=== PATIENT | male | born 1960 | race Caucasian/White ===

== ENCOUNTER 2017-12-03 08:00 | Outpatient (CLI) | payer OTHER ==
[2017-12-03 17:22] LABS: BASOPHILS % (AUTO) 0.6 %; EOSINOPHILS # (AUTO) 0.1 10^3/uL (0.0-0.7); EOSINOPHILS % (AUTO) 1.7 %; HGB - HEMOGLOBIN 17.3 g/dL (14.0-18.0); LYMPHOCYTES # (AUTO) 2.6 10^3/uL (1.5-3.5); LYMPHOCYTES % (AUTO) 36.7 %; MEAN CORPUSCULAR HEMOGLOBIN 33.5 pg (27.0-31.0); MEAN CORPUSCULAR HGB CONC 33.6 g/dL (32.0-36.0); MEAN CORPUSCULAR VOLUME 99.9 fL (80.0-94.0); MEAN PLATELET VOLUME 10.4 fL (7.4-11.4); MONOCYTES # (AUTO) 0.6 10^3/uL (0.0-1.0); MONOCYTES % (AUTO) 8.7 %; NEUTROPHILS # (AUTO) 3.7 10^3/uL (1.5-6.6); NEUTROPHILS % (AUTO) 52.3 %; PLT - PLATELET COUNT 134 10^3/uL (130-450); RED BLOOD COUNT 5.16 10^6/uL (4.70-6.10); RED CELL DISTRIBUTION WIDTH 13.5 % (12.0-15.0); WHITE BLOOD COUNT 7.1 x10^3/uL (4.8-10.8)
[2017-12-03 17:33] LABS: ALBUMIN 4.2 g/dL (3.2-5.5); ALBUMIN/GLOBULIN RATIO 1.1 (1.0-2.2); ALKALINE PHOSPHATASE 92 IU/L (42-121); ALT ALANINE AMINOTRANSFERASE 187 IU/L (10-60); AMYLASE 44 U/L (28-100); AST ASPARTATE AMINOTRANSFERASE 165 IU/L (10-42); BILIRUBIN,TOTAL 1.4 mg/dL (0.2-1.0); BUN - BLOOD UREA NITROGEN 13 mg/dL (6-20); CALCIUM 9.2 mg/dL (8.5-10.3); CARBON DIOXIDE - CO2 27 mmol/L (21-32); CHLORIDE 102 mmol/L (101-111); CHOL/HDL RATIO 4.9 (<5.0); CHOLESTEROL 162 mg/dL; CREATININE 0.7 mg/dL (0.6-1.2); GFR - MDRD 115 (>89); GLUCOSE 95 mg/dL (70-100); HDL CHOLESTEROL 33 mg/dL; LDL CHOLESTEROL,CALCULATED 104 mg/dL; LDL/HDL RATIO 3.2 (<3.6); SODIUM 138 mmol/L (135-145); TOTAL PROTEIN 8.1 g/dL (6.7-8.2); VLDL CHOLESTEROL 25 mg/dL
== END 2017-12-03 08:01 ==
LOC: LAB.F 08:00
PROVIDERS: ATTEND Physician Assistant Medical
DX: Z00.00 Encounter for general adult medical examination without abnormal findings (principal); R10.9 Unspecified abdominal pain
CPT/HCPCS: 36415; 80053; 80061; 82150; 83721; 84443; 85025

== ENCOUNTER 2017-12-12 11:31 | Outpatient (CLI) | payer OTHER ==
[2017-12-13 14:09] LABS: HEPATITIS B SURFACE ANTIGEN NON-REACTIVE (NON-REACTIVE); HEPATITIS C ANTIBODY REACTIVE (NON-REACTIVE)
[2017-12-16 13:41] LABS: HCV RNA QNT 6.24 Log IU/mL (NOT DETECTED); HCV RNA QUANT RT PCR 1750000 IU/mL (NOT DETECTED)
== END 2017-12-12 11:32 | disposition home or self-care (01) ==
LOC: LAB.F 11:31
PROVIDERS: ATTEND Physician Assistant Medical
DX: R74.0 Nonspecific elevation of levels of transaminase and lactic acid dehydrogenase [LDH] (principal)
CPT/HCPCS: 36415; 81599; 86317; 86704; 86803; 87340

== ENCOUNTER 2019-01-14 07:29 | Outpatient (CLI) | payer OTHER ==
[2019-01-14 12:33] LABS: CALCIUM 9.3 mg/dL (8.5-10.3); CREATININE 0.8 mg/dL (0.6-1.2)
[2019-01-18 14:46] LABS: DHEA SULFATE 100 mcg/dL (38-313)
== END 2019-01-14 07:30 | disposition home or self-care (01) ==
LOC: LAB.F 07:29
PROVIDERS: ATTEND Internal Medicine Endocrinology, Diabetes & Metabolism
DX: D35.02 Benign neoplasm of left adrenal gland (principal)
CPT/HCPCS: 36415; 80048; 81599; 82088; 82533; 82627

== ENCOUNTER 2020-06-24 09:11 | Outpatient (CLI) | payer OTHER ==
[2020-06-24 13:29] LABS: BASOPHILS # (AUTO) 0.1 10^3/uL (0.0-0.1); BASOPHILS % (AUTO) 0.5 %; EOSINOPHILS # (AUTO) 0.3 10^3/uL (0.0-0.7); EOSINOPHILS % (AUTO) 2.7 %; HGB - HEMOGLOBIN 16.9 g/dL (14.0-18.0); LYMPHOCYTES # (AUTO) 2.9 10^3/uL (1.5-3.5); LYMPHOCYTES % (AUTO) 30.5 %; MEAN CORPUSCULAR HEMOGLOBIN 33.5 pg (27.0-31.0); MEAN CORPUSCULAR HGB CONC 34.8 g/dL (32.0-36.0); MEAN CORPUSCULAR VOLUME 96.4 fL (80.0-94.0); MONOCYTES # (AUTO) 0.6 10^3/uL (0.0-1.0); MONOCYTES % (AUTO) 6.6 %; NEUTROPHILS # (AUTO) 5.7 10^3/uL (1.5-6.6); NEUTROPHILS % (AUTO) 59.3 %; PLT - PLATELET COUNT 206 10^3/uL (130-450); RED BLOOD COUNT 5.04 10^6/uL (4.70-6.10); RED CELL DISTRIBUTION WIDTH 12.7 % (12.0-15.0); WHITE BLOOD COUNT 9.6 x10^3/uL (4.8-10.8)
[2020-06-24 13:52] LABS: ALBUMIN 4.4 g/dL (3.2-5.5); ALBUMIN/GLOBULIN RATIO 1.2 (1.0-2.2); ALKALINE PHOSPHATASE 44 IU/L (42-121); ALT ALANINE AMINOTRANSFERASE 37 IU/L (10-60); AMYLASE 36 U/L (28-100); AST ASPARTATE AMINOTRANSFERASE 26 IU/L (10-42); BILIRUBIN,TOTAL 0.9 mg/dL (0.2-1.0); BUN - BLOOD UREA NITROGEN 16 mg/dL (6-20); CALCIUM 9.4 mg/dL (8.5-10.3); CARBON DIOXIDE - CO2 26 mmol/L (21-32); CHLORIDE 103 mmol/L (101-111); CHOL/HDL RATIO 5.1 (<5.0); CHOLESTEROL 169 mg/dL; CREATININE 0.8 mg/dL (0.6-1.2); GLUCOSE 115 mg/dL (70-100); HDL CHOLESTEROL 33 mg/dL; LDL CHOLESTEROL,CALCULATED 109 mg/dL; LDL/HDL RATIO 3.3 (<3.6); LIPASE 34 U/L (22-51); SODIUM 138 mmol/L (135-145); VLDL CHOLESTEROL 27 mg/dL
== END 2020-06-24 09:12 | disposition home or self-care (01) ==
LOC: LAB.S 09:11
PROVIDERS: ATTEND Family Medicine
DX: Z00.00 Encounter for general adult medical examination without abnormal findings (principal); I10 Essential (primary) hypertension; D35.00 Benign neoplasm of unspecified adrenal gland
CPT/HCPCS: 36415; 80053; 80061; 82150; 83690; 83721; 84153; 84443; 85025

== ENCOUNTER 2021-03-07 06:37 | Outpatient (CLI) | payer OTHER ==
--- NOTE | 2021-03-07 08:59 | CT Report ---
PROCEDURE: Low Dose Lung Cancer Screen INDICATIONS: CURRENT SMOKER TECHNIQUE: Noncontrast low-dose 5 mm thick sections acquired from the pulmonary apices to the posterior costophr enic angles. 7 mm thick coronal and sagittal MIP reformats were then acquired. For radiation dose r eduction, the following was used: automated exposure control, adjustment of mA and/or kV according t o patient size. COMPARISON: None. FINDINGS: Lungs and pleura: High density 1 mm calcified granuloma seen on image 173/4. Diffuse peribronchial c uffing suggestive of nonspecific bronchitis and/or reactive airways disease. Upper lobe predominant c entrilobular emphysema noted. No acute consolidation. No suspicious pulmonary nodule. Pleura: No pleural effusion or pneumothorax. Heart: Normal. Lymph nodes: Normal. Thyroid: Normal. Aorta: Normal Pulmonary arteries: Normal. Esophagus: Bones: Diffuse spondolytic changes and facet arthropathy. No compression fracture. Upper abdomen: Normal. IMPRESSION: No suspicious pulmonary nodule. Lung-RADS 1. Recommend annual lung screening CT. Upper lobe predominant emphysema. Diffuse peribronchial cuffing suggestive of nonspecific bronchitis and/or reactive airways disease. Lung-RADS 0: Prior chest CT needed for comparison. Part of all of lungs cannot be evaluated. Lung-RADS 1: No nodules or definitely benign nodules, continue annual screening in 12 months. ? Nodules with specific calcifications: complete, central, popcorn, concentric rigns and fat contain ing nodules. Lung-RADS 2: Very low likelihood of becoming clinically active CA due to size or lack of growth, con tinue annual screening in 12 months. ? Solid nodules: < 6 mm or new < 4 mm. ? Part solid nodules: < 6 mm total diameter on baseline. ? Non-solid or ground-glass nodules: < 20 mm OR 20 mm or more (unchanged or slowly growing). ? Category 3 and 4 nodules unchanged for 3 months or more. Lung-RADS 3: Probably benign; recommend [address] ? Solid nodules: 6 to <8 mm at baseline OR new 4 to <6 mm nodule. ? Part solid nodules: 6 mm or more with solid component of < 6 mm OR new < 6 mm lesion. ? Non-solid or ground-glass nodules: 20 mm or more on baseline, or new. Lung-RADS 4A: Suspicious; recommend 3-month followup CT, or PET-CT when there is a solid component o f 8 mm or more. ? Solid nodules: 8 to <15 mm at baseline, OR growing < 8 mm, OR new 6 to <8 mm. ? Part-solid nodules: 6 mm ore more with solid component 6 to < 8 mm, OR with new/growing < 4 mm so lid component. ? Endobronchial nodule. Lung-RADS 4B: Suspicious; recommend chest CT with or without contrast, PET-CT and/or biopsy. PET-CT may be used if there is a solid component of 8 mm or more. ? Solid nodules: 15 mm or more, OR new/growing 8 mm or more. ? Part-solid nodules: solid component of 8 mm or more, OR new/growing solid component of 4 mm or mor e. Lung-RADS 4X: Category 3-4 nodules with additional features or findings that increase the suspicion for malignancy. Treat the same as 4B. ? Examples: spiculated margins, ground-glass nodule doubling in size in 1 year, enlarged lymph nodes . S modifier: Clinically significant or potentially clinically significant findings (not lung CA). C modifier: Patients with prior dx of lung CA who return to screening. Growth: defined as size increase of > 1.5 mm. Reviewed by: John Baker MD on 03/07/2021 8:58 AM PDT Approved by: John Baker MD on 03/07/2021 8:58 AM PDT Station ID: [id number]
== END 2021-03-07 06:38 | disposition home or self-care (01) ==
LOC: DI 06:37
PROVIDERS: ATTEND Internal Medicine
DX: Z12.2 Encounter for screening for malignant neoplasm of respiratory organs (principal); J43.9 Emphysema, unspecified; J98.09 Other diseases of bronchus, not elsewhere classified; F17.210 Nicotine dependence, cigarettes, uncomplicated

== ENCOUNTER 2021-03-28 13:49 | Outpatient (CLI) | payer OTHER ==
--- NOTE | 2021-03-28 18:08 | CT Report ---
PROCEDURE: ABDOMEN WO INDICATIONS: HYPERTENSION TECHNIQUE: Noncontrast axial images were acquired from the diaphragms to the symphysis. 5 mm coronal and sagitt al reformats were then performed. For radiation dose reduction, the following was used: automated e xposure control, adjustment of mA and/or kV according to patient size. COMPARISON: Low-dose chest CT dated 03/07/2021 FINDINGS: Image quality: Excellent. Lung bases: Lung bases are clear. Heart size is normal. Adrenal glands: Right adrenal gland is unremarkable. There is a 1.6 x 1.7 x 1.8 cm hypodense nodule in the left adrenal gland measuring between 1 and 5 Hounsfield units. Solid organs: Liver and spleen are normal in size and enhancement. Gallbladder is unremarkable Alvaro iary system is non dilated. Pancreas enhances normally. Kidneys are normal in size and enhancement. No hydronephrosis or nephrolithiasis. Peritoneum and bowel: Unenhanced bowel loops are normal in caliber and wall thickness. Minimal colon ic diverticulosis without acute diverticulitis. No free fluid or air. Normal appendix Nodes and vessels: No retroperitoneal or mesenteric adenopathy by size criteria. Aorta and inferior vena cava are normal in size. Scattered atherosclerotic calcifications of the abdominal aorta. Miscellaneous: No ventral hernias visualized in the imaged portions of the abdomen. Bones: No suspicious bony lesions. No acute vertebral body compression fractures. IMPRESSION: 1. A 1.6 x 1.7 x 1.8 cm left adrenal gland nodule with imaging characteristics of an adrenal adenoma. 2. Colonic diverticulosis without acute diverticulitis. 3. Normal appendix. 4. Atherosclerosis. Reviewed by: Tony Silva MD on 03/28/2021 6:06 PM PDT Approved by: Tony Silva MD on 03/28/2021 6:06 PM PDT Station ID: [id number]
== END 2021-03-28 13:50 | disposition home or self-care (01) ==
LOC: DI 13:49
PROVIDERS: ATTEND Internal Medicine
DX: D35.02 Benign neoplasm of left adrenal gland (principal); I10 Essential (primary) hypertension

== ENCOUNTER 2021-06-18 09:16 | Outpatient (CLI) | payer OTHER ==
[2021-06-18 13:44] LABS: BASOPHILS % (AUTO) 0.3 %; EOSINOPHILS # (AUTO) 0.3 10^3/uL (0.0-0.7); EOSINOPHILS % (AUTO) 2.8 %; HCT - HEMATOCRIT 49.6 % (42.0-52.0); HGB - HEMOGLOBIN 16.6 g/dL (14.0-18.0); LYMPHOCYTES # (AUTO) 2.7 10^3/uL (1.5-3.5); LYMPHOCYTES % (AUTO) 30.3 %; MEAN CORPUSCULAR HEMOGLOBIN 32.6 pg (27.0-31.0); MEAN CORPUSCULAR HGB CONC 33.5 g/dL (32.0-36.0); MEAN CORPUSCULAR VOLUME 97.4 fL (80.0-94.0); MEAN PLATELET VOLUME 11.8 fL (7.4-11.4); MONOCYTES # (AUTO) 0.7 10^3/uL (0.0-1.0); MONOCYTES % (AUTO) 7.8 %; NEUTROPHILS # (AUTO) 5.3 10^3/uL (1.5-6.6); NEUTROPHILS % (AUTO) 58.5 %; PLT - PLATELET COUNT 232 10^3/uL (130-450); RED BLOOD COUNT 5.09 10^6/uL (4.70-6.10); RED CELL DISTRIBUTION WIDTH 12.4 % (12.0-15.0)
[2021-06-18 13:54] LABS: ALBUMIN 4.6 g/dL (3.2-5.5); ALBUMIN/GLOBULIN RATIO 1.2 (1.0-2.2); CALCIUM 9.5 mg/dL (8.5-10.3); CREATININE 0.8 mg/dL (0.6-1.2); TOTAL PROTEIN 8.3 g/dL (6.7-8.2)
== END 2021-06-18 09:17 | disposition home or self-care (01) ==
LOC: LAB.S 09:16
PROVIDERS: ATTEND Internal Medicine
DX: I10 Essential (primary) hypertension (principal); Z12.5 Encounter for screening for malignant neoplasm of prostate
CPT/HCPCS: 36415; 80053; 84153; 85025

== ENCOUNTER 2022-10-17 06:51 | Outpatient (CLI) | payer OTHER ==
[2022-10-17 07:45] LABS: CHOL/HDL RATIO 5.2 (<5.0); CHOLESTEROL 167 mg/dL; HDL CHOLESTEROL 32 mg/dL; LDL CHOLESTEROL,CALCULATED 107 mg/dL; LDL/HDL RATIO 3.3 (<3.6); TRIGLYCERIDES 139 mg/dL; VLDL CHOLESTEROL 28 mg/dL
== END 2022-10-17 06:52 | disposition home or self-care (01) ==
LOC: LAB 06:51
PROVIDERS: ATTEND Registered Nurse
DX: R97.20 Elevated prostate specific antigen [PSA] (principal); Z13.220 Encounter for screening for lipoid disorders
CPT/HCPCS: 36415; 80061; 83721; 84153

== ENCOUNTER 2022-10-17 07:21 | Outpatient (CLI) | payer OTHER ==
--- NOTE | 2022-10-17 10:56 | CT Report ---
PROCEDURE: CHEST WO INDICATIONS: HIST OF SMOKING, COPD TECHNIQUE: Noncontrast 1mm axial images were acquired from the pulmonary apices to the posterior costophrenic an gles. Axial 5 mm soft tissue kernel reconstructions were performed as well as 8 mm axial MIP and cor onal and sagittal 5 mm reformations. For radiation dose reduction, the following was used: automate d exposure control, adjustment of mA and/or kV according to patient size. COMPARISON: 03/07/2021 FINDINGS: Image quality: Good Lungs and pleura: Emphysema. No pleural effusions or dense consolidations. There is stable pulmonary micronodules. For example on the right image . Mediastinum, heart, and esophagus: No hiatal hernia. There are coronary calcifications. Stable promin ent mediastinal lymph nodes, not enlarged by size criteria. Chest wall and thyroid: Unremarkable Upper abdomen: No gross abnormality on noncontrast imaging. Similar, favored adenomatous thickening o f the adrenal glands. Bones: No acute or suspicious osseous finding. IMPRESSION: No acute thoracic abnormality. No new/enlarging suspicious pulmonary nodules. Consider continued low dose and lung cancer screening. Reviewed by: Nagi Morley MD on 10/17/2022 10:55 AM [facility] Approved by: Nagi Morley MD on 10/17/2022 10:55 AM PST Station ID: [id number]
== END 2022-10-17 07:22 | disposition home or self-care (01) ==
LOC: DI 07:21
PROVIDERS: ATTEND Registered Nurse
DX: J44.9 Chronic obstructive pulmonary disease, unspecified (principal); F17.210 Nicotine dependence, cigarettes, uncomplicated; R97.20 Elevated prostate specific antigen [PSA]; Z13.220 Encounter for screening for lipoid disorders
CPT/HCPCS: 36415; 80061; 83721; 84153

== ENCOUNTER 2023-01-04 08:00 | Outpatient (CLI) | payer OTHER ==
--- NOTE | 2023-01-04 11:03 | XRAY Report ---
PROCEDURE: Wrist 3 View LT INDICATIONS: LEFT WRIST SPRAIN TECHNIQUE: 3 views of the wrist were acquired. COMPARISON: None. FINDINGS: Bones: No acute fractures or dislocations. A prominent osteophyte versus remote fracture fragment c an be seen adjacent to the trapezium. No suspicious bony lesions. Generalized degenerative changes are seen by plain film. Soft tissues: Soft tissue calcification can be seen along the ulnar aspect of the pisiform. IMPRESSION: Generalized degenerative changes are seen by plain film, without an acute focal plain film abnormalit y identified. If it would be helpful for clinical management decision making, please consider a dedicated, schedule d wrist MRI for further evaluation (assuming that there is no contraindication). This should be perf ormed according to the arthrogram protocol, if there is strong clinical concern for a ligamentous abn ormality. Reviewed by: Victoriano Espana MD on 01/04/2023 10:02 AM [facility] Approved by: Victoriano Espana MD on 01/04/2023 10:02 AM [facility] Station ID: [id number]
== END 2023-01-04 08:01 | disposition home or self-care (01) ==
LOC: DI.S 08:00
PROVIDERS: ATTEND Physician Assistant Medical
DX: S63.592A Other specified sprain of left wrist, initial encounter (principal); M19.032 Primary osteoarthritis, left wrist

== ENCOUNTER 2023-10-10 07:05 | Outpatient (CLI) | payer OTHER ==
[2023-10-10 14:46] LABS: BASOPHILS % (AUTO) 0.5 %; EOSINOPHILS # (AUTO) 0.2 10^3/uL (0.0-0.7); HCT - HEMATOCRIT 47.8 % (42.0-52.0); HGB - HEMOGLOBIN 15.6 g/dL (14.0-18.0); LYMPHOCYTES # (AUTO) 2.3 10^3/uL (1.5-3.5); LYMPHOCYTES % (AUTO) 29.9 %; MEAN CORPUSCULAR HEMOGLOBIN 32.2 pg (27.0-31.0); MEAN CORPUSCULAR HGB CONC 32.6 g/dL (32.0-36.0); MEAN CORPUSCULAR VOLUME 98.6 fL (80.0-94.0); MEAN PLATELET VOLUME 11.8 fL (7.4-11.4); MONOCYTES # (AUTO) 0.8 10^3/uL (0.0-1.0); MONOCYTES % (AUTO) 10.6 %; NEUTROPHILS # (AUTO) 4.3 10^3/uL (1.5-6.6); NEUTROPHILS % (AUTO) 55.7 %; PLT - PLATELET COUNT 198 10^3/uL (130-450); RED BLOOD COUNT 4.85 10^6/uL (4.70-6.10); RED CELL DISTRIBUTION WIDTH 13.1 % (12.0-15.0); WHITE BLOOD COUNT 7.7 x10^3/uL (4.8-10.8)
[2023-10-10 15:56] LABS: ALBUMIN 4.5 g/dL (3.2-5.5); ALBUMIN/GLOBULIN RATIO 1.5 (1.0-2.2); ALKALINE PHOSPHATASE 45 IU/L (42-121); ALT ALANINE AMINOTRANSFERASE 21 IU/L (10-60); AST ASPARTATE AMINOTRANSFERASE 19 IU/L (10-42); BILIRUBIN,TOTAL 0.5 mg/dL (0.2-1.0); BUN - BLOOD UREA NITROGEN 18 mg/dL (6-20); CALCIUM 9.3 mg/dL (8.5-10.3); CARBON DIOXIDE - CO2 28 mmol/L (21-32); CHLORIDE 101 mmol/L (101-111); CHOL/HDL RATIO 2.8 (<5.0); CHOLESTEROL 96 mg/dL; CREATININE 0.8 mg/dL (0.6-1.3); GFR - MDRD 97 (>89); GLUCOSE 128 mg/dL (74-104); HDL CHOLESTEROL 34 mg/dL; LDL CHOLESTEROL,CALCULATED 45 mg/dL; LDL/HDL RATIO 1.3 (<3.6); POTASSIUM 3.9 mmol/L (3.5-4.5); SODIUM 136 mmol/L (135-145); TOTAL PROTEIN 7.5 g/dL (6.4-8.9); TRIGLYCERIDES 87 mg/dL (48-352); VLDL CHOLESTEROL 17 mg/dL
== END 2023-10-10 07:06 | disposition home or self-care (01) ==
LOC: LAB.S 07:05
PROVIDERS: ATTEND Registered Nurse
DX: I10 Essential (primary) hypertension (principal); R73.9 Hyperglycemia, unspecified; Z79.899 Other long term (current) drug therapy; Z13.220 Encounter for screening for lipoid disorders; Z12.5 Encounter for screening for malignant neoplasm of prostate
CPT/HCPCS: 36415; 80053; 80061; 83721; 84153; 85025

== ENCOUNTER 2023-10-19 07:43 | Outpatient (CLI) | payer OTHER ==
--- NOTE | 2023-10-20 01:21 | CT Report ---
PROCEDURE: Lung Cancer Screen INDICATIONS: SMOKER TECHNIQUE: A CT scan of the chest was performed. Intravenous contrast media was not administered. Images were re corded and evaluated at appropriate window settings. Reformats: axial MIP of the chest, coronal and s agittal. For radiation dose reduction, the following was used: automated exposure control, adjustment of mA and/or kV according to patient size. COMPARISON: CT chest 10/17/2022. FINDINGS: Image quality: Diagnostic. Prior cancer history: No. Lungs and pleura: No pleural effusions. No pneumothorax. Emphysema. Stable pulmonary micronodules. N o new or enlarging pulmonary nodule. Mediastinum: Heart size is normal. No pericardial effusion. No large vessel abnormality. No mediastin al adenopathy by size criteria. Chest wall and lower neck: Thyroid is unremarkable. No axillary or supraclavicular adenopathy by size . Bones: No acute or suspicious osseous abnormality. Upper Abdomen: There is abnormality in noncontrast imaging. Stable probable adenomatous thickening of the adrenal glands. IMPRESSION: Stable pulmonary micronodules. No new or enlarging pulmonary nodule. Lung RAD: 2 - Benign. Recommendation: Continue annual screening in 12 Months with LDCT Non-Lung Significant Findings: None. Reviewed by: Martha Stout MD on 10/20/2023 1:20 AM PST Approved by: Martha Stout MD on 10/20/2023 1:20 AM PST Station ID: [id number]
== END 2023-10-19 07:44 | disposition home or self-care (01) ==
LOC: DI 07:43
PROVIDERS: ATTEND Registered Nurse
DX: Z12.2 Encounter for screening for malignant neoplasm of respiratory organs (principal); R91.8 Other nonspecific abnormal finding of lung field; F17.210 Nicotine dependence, cigarettes, uncomplicated

== ENCOUNTER 2023-11-28 11:12 | Outpatient (CLI) | payer OTHER ==
[2023-11-28] MEDS: ALBUTEROL 1 PUFF INH STA (12:51)
== END 2023-11-28 11:13 | disposition home or self-care (01) ==
LOC: RT 11:12
PROVIDERS: ATTEND Registered Nurse
DX: J44.9 Chronic obstructive pulmonary disease, unspecified (principal); F17.210 Nicotine dependence, cigarettes, uncomplicated
CPT/HCPCS: 94060; 94729